=== PATIENT | male | born 1960 | race Caucasian/White ===

== ENCOUNTER 2017-07-04 09:00 | Day surgery (SDC) | payer OTHER ==
[~2017-07-04] VITALS: Ht 152.4 cm; Wt 67.1 kg
[2017-07-04 09:31] VITALS: BP 147/91
[2017-07-04 13:38] VITALS: BP 137/84
== END 2017-07-04 13:20 | disposition home or self-care (01) ==
LOC: GI 09:00 → OR 10:30 → GI 10:30
PROVIDERS: Internal Medicine Gastroenterology
PROC: 0DB68ZX Excision of Stomach, Via Natural or Artificial Opening Endoscopic, Diagnostic (ICD-10-PCS; principal; 2017-07-04 10:30)
DX: K29.80 Duodenitis without bleeding (principal); K64.8 Other hemorrhoids
CPT/HCPCS: 43235; 45378; J1200; J1610; J2250; J2310; J3010; J3490